=== PATIENT | female | born 1950 | race Hispanic/Latino ===

== ENCOUNTER 2022-06-12 11:02 | Emergency (ER) | payer MEDICARE, OTHER ==
[~2022-06-12] VITALS: Ht 160 cm; Wt 80.7 kg
[2022-06-12] MEDS ORDERED: TETANUS/DIPHTHERIA TOXOID [ADULT] 0.5 ML VIAL IM ONE ×2 (16:09→16:30)
[2022-06-12 16:15] VITALS: BP 161/74
== END 2022-06-12 16:21 | disposition home or self-care (01) ==
LOC: EDH 11:02
DX: S00.81XA Abrasion of other part of head, initial encounter (principal); E11.9 Type 2 diabetes mellitus without complications; E78.00 Pure hypercholesterolemia, unspecified; I10 Essential (primary) hypertension; X58.XXXA Exposure to other specified factors, initial encounter; Y93.89 Activity, other specified; Y99.8 Other external cause status; Y92.89 Other specified places as the place of occurrence of the external cause
CPT/HCPCS: 70450; 72125; 90471; 90714

== ENCOUNTER → 2023-01-26 | Outpatient (CLI) | payer OTHER | END | disposition home or self-care (01) | LOC: OIH 13:04 | PROVIDERS: ATTEND Internal Medicine Cardiovascular Disease | DX: Z13.6 Encounter for screening for cardiovascular disorders (principal) | CPT/HCPCS: 75571 ==